=== PATIENT | male | born 1960 | race Caucasian/White ===

== ENCOUNTER 2021-03-13 09:21 | Emergency (ER) | payer OTHER ==
[~2021-03-13] VITALS: Ht 172.7 cm; Wt 74.8 kg
--- NOTE | 2021-03-13 09:31 | NUR ---
ARRIVAL PT ARRIVED TO ED WITH C/O LOW ENERGY, SOB WITH EXERTION, RIGHT SIDE CHEST PAIN IF BEING PUNCHED X 2 DAYS. BEDSIDE MONITORS APPLIED. VITAL SIGNS STABLE. PT HR TACHYCARDIC. RT CALLED FOR EKG. BED IN LOW LOCKED POSITION. 18G IV PLACED TO LEFT AC WITH BLOOD COLLECTED AND TAKEN TO LAB.
[2021-03-13] MEDS ORDERED: CARDIZEM IV STA (09:36)
[2021-03-13] MEDS ORDERED: LASIX IV STA (09:36)
[2021-03-13] MEDS ORDERED: CARDIZEM PO STA (09:36)
--- NOTE | 2021-03-13 09:44 | PCM.EKG ---
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
[2021-03-13 09:45] VITALS: BP 167/109
--- NOTE | 2021-03-13 09:49 | ER.PDOC ---
General Chief Complaint: Requesting Medical Care Stated Complaint: SOB WHEN LAYING DOWN/SLEEPING Time seen by MD: 09:44 Source: patient Exam Limitations: no limitations History of Present Illness Timing/Duration: 1 week Severity: mild Activities at Onset: activity/exertion Prior Episodes/Possible Cause: occasional episodes Modifying Factors: improves with activity, improves with rest Associated Symptoms: chest pain Prior symptoms/Treatment: Similar symptoms previous Allergies: Coded Allergies: No Known Allergies (Unverified , 03/13/21) Past Medical History Medical History: other Physical Exam Cardiovascular: Tachycardia Results/Orders Results/Orders Orders - SUSANNA VALERO MD Cbc With Auto Diff (03/13/21 09:35) Comprehensive Metabolic Panel (03/13/21 09:35) Creatine Kinase (03/13/21 09:35) Creatine Kinase Mb (03/13/21 09:35) Troponin I (03/13/21 09:35) Probnp B-Type Cold Roll Inspector (03/13/21 09:35) PT (03/13/21 09:35) Partial Thromboplastin Time. (03/13/21 09:35) Helicobacter Pylori (03/13/21 09:35) D-Dimer (03/13/21 09:35) Xr Chest 1v (03/13/21 09:35) Ekg-Routine (03/13/21 09:35) Saline Lock (03/13/21 09:35) Drug Scrn Med W Confirmation (03/13/21 09:35) Diltiazem Hcl (Cardizem) (03/13/21 09:36) Diltiazem Hcl (Cardizem) (03/13/21 09:36) Furosemide (Lasix) (03/13/21 09:36) Digoxin (03/13/21 09:36) Diltiazem Hcl (Cardizem) (03/13/21 09:53) Furosemide (Lasix) (03/13/21 09:53) Diltiazem Hcl (Cardizem) (03/13/21 10:00) Vital Signs Date Time Temp Pulse Resp B/P (MAP) Pulse Ox O2 Delivery O2 Flow Rate FiO2 03/13/21 10:11 97.6 64 20 134/68 (90) 95 Room Air 03/13/21 10:00 123 03/13/21 09:58 97.6 63 20 171/97 (121) 95 Room Air 03/13/21 09:58 167/109 03/13/21 09:58 156 167/109 03/13/21 09:45 97.6 156 20 95 03/13/21 09:45 97.6 156 20 03/13/21 09:45 97.6 156 20 167/109 (128) 95 Room Air Administered Medications Medications (Trade) Dose Ordered Sig/Kermit Route PRN Reason Start Time Stop Time Status Last Admin Dose Admin Diltiazem HCl (Cardizem) 20 mg STAT STAT IV 03/13/21 09:36 03/13/21 09:38 DC 03/13/21 10:00 20 MG Diltiazem HCl (Cardizem) 30 mg STAT STAT PO 03/13/21 09:36 03/13/21 09:38 DC 03/13/21 09:58 30 MG Furosemide (Lasix) 40 mg STAT STAT IV 03/13/21 09:36 03/13/21 09:38 DC 03/13/21 09:58 40 MG Laboratory Tests Test 03/13/21 09:35 White Blood Count 9.0 10^3/uL (4.5-11.0) Red Blood Count 5.86 10^6/uL (4.50-5.90) Hemoglobin 17.3 g/dL (13.9-16.3) H Hematocrit 52.0 % (37.0-53.0) Mean Corpuscular Volume 88.7 fL (78-100) Mean Corpuscular Hemoglobin 29.5 pg (26-34) Mean Corpuscular Hemoglobin Concent 33.3 g/dL (33-36.5) Red Cell Distribution Width 13.7 % (11.5-14.5) Platelet Count 198 10^3/uL (150-400) Mean Platelet Volume 9.7 fL (7.8-11.0) Neutrophils (%) (Auto) 75.9 % (41.0-85.0) Lymphocytes (%) (Auto) 11.8 % (24.0-44.0) L Monocytes (%) (Auto) 11.7 % (5.0-12.0) Neutrophils # (Auto) 6.8 10^3/uL (1.8-7.7) Lymphocytes # (Auto) 1.06 10^3/uL1 (1.0-4.8) Monocytes # (Auto) 1.1 10^3/uL (0.3-0.8) H Absolute Immature Granulocyte (auto 0.01 10^3 u/L (0-2) Absolute Eosinophils (auto) 0.0 10^3/uL (0.0-0.2) Immature Granulocytes % 0.10 % (0.00-0.50) Eosinophils % 0.3 % (0.0-5.0) Basophils % 0.3 % (0.0-0.2) H Basophils # 0.0 10^3/uL (0.0-0.1) Prothrombin Time 38.2 SEC (9.6-12.0) H Prothrombin Time INR (Non-Therap) 3.7 Activated Partial Thromboplast Time 32.8 SEC (24.67-30.72) D-Dimer < 0.19 mg/L (0.19-0.49) L Sodium Level 138 mmol/L (132-145) Potassium Level 5.7 mmol/L (3.6-5.2) H Chloride Level 105.0 mmol/L (96-109) Carbon Dioxide Level 22.2 mmol/L (20.0-32) Anion Gap 16.5 Blood Urea Nitrogen 26 mg/dL (7-18) H Creatinine 1.05 mg/dL (0.59-1.40) Estimated GFR () 86.9 (>/=60) Est GFR (CKD-EPI)(Non-Afr Ivorian) 71.8 (>/=60) BUN/Creatinine Ratio 24.0 Glucose Level 121 mg/dL (70-110) H Calcium Level 8.4 mg/dL (8.4-10.5) Total Bilirubin 0.9 mg/dL (0.2-1.0) Aspartate Amino Transferase (AST) 136 U/L (0-35) H Alanine Aminotransferase (ALT) 227 U/L (12-78) H Alkaline Phosphatase 70 U/L (50-136) Total Creatine Kinase 300 U/L (39-308) Creatine Kinase MB 3.8 ng/mL (0.5-3.6) H Troponin I < 0.02 ng/mL (0.00-0.05) Pro-B-Type Natriuretic Peptide 3355 pg/mL (0-125) H Total Protein 7.6 g/dL (6.4-8.2) Albumin 3.8 g/dL (3.4-5.0) Globulin 3.8 Albumin/Globulin Ratio 1.000 Digoxin Level 0.53 ng/mL (0.90-2.00) L Helicobacter pylori Screen NEGATIVE (NEGATIVE) EKG/XRAY/CT/US EKG Comments: AFIB ER DEPART Departure Disposition: HOME / SELF CARE / HOMELESS Impression: Primary Impression: Afib Condition: Improved Referrals: PCP,UNKNOWN (PCP) PRIMARY CARE PROVIDER Duration or Time Spent with Pa: 15M SUSANNA VALERO MD Mar 13, 2021 09:49
[2021-03-13 09:50] LABS: BASOPHIL % 0.3 % (0.0-0.2); EOSINOPHIL % 0.3 % (0.0-5.0); LYMPHOCYTES # 1.06 10^3/uL1 (1.0-4.8); LYMPHOCYTES % 11.8 % (24.0-44.0); MEAN CORP HGB 29.5 pg (26-34); MONOCYTES # 1.1 10^3/uL (0.3-0.8); MONOCYTES % 11.7 % (5.0-12.0); NEUTROPHIL # 6.8 10^3/uL (1.8-7.7); NEUTROPHILS % 75.9 % (41.0-85.0); RED CELL DISTRIBUTION WIDTH 13.7 % (11.5-14.5)
[2021-03-13] MEDS ORDERED: CARDIZEM ONE (09:53)
[2021-03-13] MEDS ORDERED: LASIX ONE (09:53)
[2021-03-13 09:58] VITALS: BP 171/97
--- NOTE | 2021-03-13 09:59 | DIREP ---
PROCEDURE:CHEST 1 VIEW COMPARISON:None. INDICATIONS:SOB FINDINGS: LUNGS/PLEURA:No focal consolidation. Trace perihilar haziness and peribronchial cuffing which may represent interstitial pulmonary edema. Right costophrenic angle is blunted. No pneumothorax. VASCULATURE:Normal. Unremarkable pulmonary vasculature. CARDIAC:Enlargement of the cardiac silhouette. MEDIASTINUM:Midline in position. Calcification of the aortic arch. BONES:Mild degenerative change of the shoulders. OTHER:Negative. CONCLUSION: Enlargement of the cardiac silhouette. Question trace interstitial pulmonary edema. Dictated by: Flaco Bailon MD on 03/13/2021 at 09:56 AM
[2021-03-13] MEDS ORDERED: CARDIZEM IV ONE (10:00)
[2021-03-13 10:11] VITALS: BP 134/68
[2021-03-13 10:24] LABS: ALANINE AMINOTRANSFERASE(ML) 227 U/L (12-78); ALKALINE PHOSPHATASE 70 U/L (50-136); ASPARTATE AMINO TRANSFERASE 136 U/L (0-35); CALCIUM 8.4 mg/dL (8.4-10.5); CARBON DIOXIDE 22.2 mmol/L (20.0-32); GLUCOSE 121 mg/dL (70-110)
== END 2021-03-13 10:49 | disposition home or self-care (01) ==
LOC: ER 09:21
DX: I48.91 Unspecified atrial fibrillation (principal)
CPT/HCPCS: 36415; 71045; 80053; 80162; 82550; 82553; 83880; 84484; 85025; 85379; 85610; 85730; 86677; 93005; 96374; 96375; 99285; J1940; J3490